=== PATIENT | female | born 1945 | race Caucasian/White ===

== ENCOUNTER 2018-01-18 12:44 | Inpatient (IN) | payer OTHER ==
[~2018-01-18] VITALS: Ht 170.2 cm; Wt 101.2 kg
--- NOTE | 2018-01-18 12:44 | NUR ---
Patient JULIA YUSUF from [facility], [place], transferred to bed 4. RN evaluating patient at bedside.
[2018-01-18 12:48] VITALS: BP 151/64
--- NOTE | 2018-01-18 12:50 | NUR ---
72 YO FEMALE BIB EMS BLS FROM [facility] FOR GRADUAL ONSET OF ALTERED MENTAL STATUS. PT IS AOX3 TO PERSON, PLACE, AND SITUATION, BUT NOT TIME. GCS=14. NO FACIAL/SMILE ASYMMETRY NOTED. PER EMS BLS REPORT, PATIENT WAS ALSO C/O LEFT FOOT SWELLING X UNKNOWN AMOUNT TIME. 3+ EDEMA TO LEFT FOOT AND ANKLE. PATIENT DENIES ANY INJURY. PT REPORTS 3/10 PAIN TO LEFT FOOT/ANKLE. PT DENIES ANY CP OR SOB. RR ARE EVEN AND UNLABORED. PATIENT TO PULSE, PULSE OX, AND BP MONITORING. NAD. VSS. AWAITING ER MD REDDY. WILL CONTINUE TO MONITOR.
[2018-01-18] MEDS ORDERED: HAL1 PO (12:57)
[2018-01-18] MEDS ORDERED: TRAZ-343 PO (12:57)
[2018-01-18] MEDS ORDERED: LOSA50TA39 PO (12:57)
[2018-01-18] MEDS ORDERED: PAX10 PO (12:57)
[2018-01-18] MEDS ORDERED: CLON0.5T PO (12:57)
--- NOTE | 2018-01-18 13:54 | NUR ---
Dr. Urrutia evaluating patient at bedside.
--- NOTE | 2018-01-18 14:40 | NUR ---
lab by bedside
[2018-01-18 15:16] LABS: BASOPHILS % (AUTO) 0.4 % (0.0-2.0); EOSINOPHILS # (AUTO) 0.2 K/uL (0-0.4); EOSINOPHILS % (AUTO) 4.1 % (0.0-4.0); HEMOGLOBIN 12.6 g/dL (12.0-16.0); LYMPHOCYTES # (AUTO) 1.2 K/uL (2.5-16.5); LYMPHOCYTES % (AUTO) 19.8 % (20.5-51.1); MEAN CORPUSCULAR HEMOGLOBIN 28 pg (27-31); MEAN CORPUSCULAR HGB CONC 33 g/dL (33-37); MEAN CORPUSCULAR VOLUME 84.5 fL (80-94); MONOCYTES # (AUTO) 0.4 K/uL (0.8-1.0); MONOCYTES % (AUTO) 6.8 % (1.7-9.3); NEUTROPHILS # (AUTO) 4.1 K/uL (1.8-7.7); NEUTROPHILS % (AUTO) 68.9 % (42.2-75.2); PLATELET COUNT (AUTO) 202 K/uL (140-450); RED CELL DISTRIBUTION WIDTH 13.7 % (11.6-13.7)
[2018-01-18 15:24] LABS: ANION GAP 13.9 (8-16); CHLORIDE 107 mmol/L (98-107); CREATININE 0.8 mg/dL (0.6-1.3); GLUCOSE 106 mg/dL (74-106); POTASSIUM 3.9 mmol/L (3.5-5.1); SODIUM SERUM 144 mmol/L (136-145); UREA NITROGEN, BLOOD 17 mg/dL (7-18)
[2018-01-18 15:29] LABS: ALBUMIN 3.4 g/dL (3.4-5.0); ASPARTATE AMINOTRANSFERASE 15 U/L (15-37); TOTAL BILIRUBIN 0.5 mg/dL (0.0-1.0)
[2018-01-18 15:54] LABS: APPEARANCE,URINE CLEAR (CLEAR); BILIRUBIN,URINE NEGATIVE (NEGATIVE); BLOOD, URINE TRACE-I (NEGATIVE); LEUKOCYTE ESTERASE ,URINE NEGATIVE (NEGATIVE); NITRITE, URINE NEGATIVE (NEGATIVE); UGLUCOSE NEGATIVE (NEGATIVE)
--- NOTE | 2018-01-18 16:00 | NUR ---
Patient became agressive, altered, and threatening staff...patient sts "I will hit you if you go near me again". Patient refused to remain in room or in gurney. Patient stated to walk around er and stating "Help, Help, these people are going to hell". ER MD FITCH made aware and zinc furnace charger John. Security called.
[2018-01-18 16:14] LABS: COLOR,URINE STRAW (YELLOW)
[2018-01-18 16:15] LABS: RBC,URINE 0-5 (RARE) /HPF (0-5); WBC,URINE NONE SEEN /HPF (0-5)
[2018-01-18] MEDS ORDERED: HALOPERIDOL IM 5 MG/ML VIAL IM ONE (16:15)
[2018-01-18] MEDS ORDERED: LORazepam 2 MG/ML VIAL IM/IVP ONE (16:15)
[2018-01-18] MEDS ORDERED: diphenhydrAMINE 50 MG/ML VIAL IM ONE (16:15)
--- NOTE | 2018-01-18 16:56 | NUR ---
patient resting in rney with eye closed. nad. vss. will continue to monitor.
--- NOTE | 2018-01-18 17:41 | NUR ---
unable to start iv saline lock; patient did not tolerated. er md Hart made aware.
--- NOTE | 2018-01-18 18:16 | NUR ---
patient to ct via gurney accompanied by human service technician
[2018-01-18] MEDS ORDERED: HYDROcodone/APAP 5/325 MG 1 TAB TAB PO PRN (18:30)
[2018-01-18] MEDS ORDERED: LORazepam 2 MG/ML VIAL IVP PRN (18:30)
[2018-01-18] MEDS ORDERED: MORPHINE SULFATE 2 MG/ML SYR IVP PRN (18:30)
[2018-01-18] MEDS ORDERED: ACETAMINOPHEN 325 MG TAB PO PRN (18:30)
[2018-01-18] MEDS ORDERED: ONDANSETRON 4 MG/2 ML VIAL IVP PRN (18:30)
--- NOTE | 2018-01-18 18:33 | NUR ---
Janet daughter of patient
--- NOTE | 2018-01-18 19:00 | NUR ---
PT ARRIVED TO UNIT VIA RCRUM FROM ER. RECEIVED REPORT FROM ER NURSE. PT SEDATED. ASSISTED WITH PT TRANSFER TO [facility]. PT TOLERATED WELL. VITAL SIGNS TAKEN- ELEVATED BP NOTED. NO S/S OF RESPIRATORY DISTRESS OR DISCOMFORT NOTED. SKIN INTACT. NO IV SITE. ON ROOM AIR. MRSA SWAB COLLECTED. BED IN LOWEST POSITION, BED BREAKS ON, BOTH SIDE RAILS UP. BEDSIDE TABLE AND CALL LIGHT ARE WITHIN REACH. WILL CONTINUE TO MONITOR.
--- NOTE | 2018-01-18 19:00 | NUR ---
Patient will be admitted to [facility]. Admited to Med Surg. Will go to room 107-A. Belongings list completed. Report to Mercedes SMITH.
[2018-01-18 20:00] VITALS: BP 151/82
--- NOTE | 2018-01-18 21:00 | NUR ---
PT CONTINUES TO SLEEP IN BED. NO S/S OF RESPIRATORY DISTRESS OR DISCOMFORT NOTED AT THIS TIME. WILL CONTINUE TO MONITOR.
--- NOTE | 2018-01-18 23:00 | NUR ---
PT CONTINUES TO SLEEP. NO S/S OF RESPIRATORY DISTRESS OR DISCOMFORT NOTED AT THIS TIME. WILL CONTINUE TO MONITOR.
[2018-01-19] VITALS: BP 150/67
--- NOTE | 2018-01-19 | NUR ---
VITAL SIGNS TAKEN AND TOLERATED WELL. ELEVATED PT NOTED. NO S/S OF RESPIRATORY DISTRESS OR DISCOMFORT NOTED AT THIS TIME. WILL CONTINUE TO MONITOR.
--- NOTE | 2018-01-19 02:00 | NUR ---
PT CONTINUES TO SLEEP IN BED. NO S/S OF RESPIRATORY DISTRESS OR DISCOMFORT NOTED AT THIS TIME. WILL CONTINUE TO MONITOR.
--- NOTE | 2018-01-19 04:00 | NUR ---
PT CONTINUES TO SLEEP IN BED. NO S/S OF RESPIRATORY DISTRESS OR DISCOMFORT NOTED AT THIS TIME. WILL CONTINUE TO MONITOR.
--- NOTE | 2018-01-19 04:50 | NUR ---
PT AWAKE SITTING AT THE EDGE OF THE BED SPEAKING INCOHERENTLY AND THREATENING STATING, "YOU BETTER GET OUT OF MY ROOM." NO S/S OF RESPIRATORY DISTRESS OR DISCOMFORT NOTED AT THIS TIME. WILL CONTINUE TO MONITOR.
--- NOTE | 2018-01-19 06:00 | NUR ---
PT CONTINUES TO SIT IN BED TAKING OFF YELLOW SOCKS AND GOWN. COVERED SELF WITH BLANKET AND CONTINUES TO THREATEN PEOPLE WHEN THEY ENTER THE ROOM TELLING THEM TO "GET OUT." NO S/S OF RESPIRATORY DISTRESS OR DISCOMFORT NOTED AT THIS TIME. WILL CONTINUE TO MONITOR.
--- NOTE | 2018-01-19 07:00 | NUR ---
PT RESTING IN BED SLEEPING. NO S/S OF RESPIRATORY DISTRESS OR DISCOMFORT NOTED AT THIS TIME. WILL CONTINUE TO MONITOR.
--- NOTE | 2018-01-19 07:10 | NUR ---
ENDORSED PT CARE TO DAY SHIFT NURSE ANITA FOR CONTINUITY OF CARE.
--- NOTE | 2018-01-19 07:15 | NUR ---
RECEIVED REPORT FROM CELL BIOLOGIST NURSE, PT IS SLEEPING IN BED, PT HAS NO IV ACCESS, NO S/S OF RESPIRATORY DISTRESS OR DISCOMFORT NOTED, PT IS ON ROOM AIR, SAFETY/FALL PRECAUTIONS ARE IN PLACE, CALL LIGHT IS WITHIN REACH, WILL CONTINUE TO MONITOR.
[2018-01-19 08:00] VITALS: BP 160/90
--- NOTE | 2018-01-19 08:40 | NUR ---
PATIENT HAS BEEN SCREENED AND CATEGORIZED MODERATE NUTRITION RISK. PATIENT WILL BE SEEN WITHIN 3-5 DAYS OF ADMISSION. 01/21/18 01/23/[address]
[2018-01-19] MEDS ORDERED: ENOXAPARIN 40 MG/0.4 ML SYR SUBQ SCH (09:00)
--- NOTE | 2018-01-19 09:15 | NUR ---
Pt awake oriented x1, cooperative. Pt able to follow simple commands, denies pain, no s/s of acute distress noted at this time. pt sitting up in bed eating breakfast. Safety measures in place, will continue to monitor.
[2018-01-19] MEDS ORDERED: clonazePAM 0.5 MG TAB PO PRN (10:20)
[2018-01-19] MEDS ORDERED: LOSARTAN 50 MG TAB PO SCH ×2 (10:35→11:00)
[2018-01-19] MEDS ORDERED: PARoxetine 10 MG TAB PO SCH (11:00)
--- NOTE | 2018-01-19 12:00 | NUR ---
Pt awake oriented x1, cooperative. assisted to reposition for lunch and with meal set up. No s/s of acute distress noted at this time. Safety measures in place, call light and personal items within reach. Will continue to monitor.
--- NOTE | 2018-01-19 12:50 | NUR ---
I CALLED [facility] AND SPOKE TO GHULAM. I LET HER KNOW I WAS CALLING FROM [facility] TO LET HER KNOW THAT I HAD A DISCHARGE ORDER FOR THE PATIENT. I LET HER KNOW THE PATIENT WAS AWAKE, CALM BUT SHE WAS CONFUSED, I ASKED HER IF THAT WAS HER BASELINE AND I WAS TOLD IT WAS. GHULAM SAID THE PATIENT STAYS ON THE [facility] SIDE UNIT. [facility] DID MENTION THEY WERE CONCERNED ABOUT THE DISCOLORATION ON THE PATIENT'S RIGHT LOWER EXTREMITY AND BILATERAL LEG SWELLING. I LET HER KNOW THE PATIENT NO LONGER HAD ANY SWELLING BUT I WOULD GO AHEAD AND TALK THE DOCTOR. Addendum: 01/19/18 at 1434 by Radha Stovall RN SPOKE TO DAVID MOSELEYILY.
--- NOTE | 2018-01-19 13:00 | NUR ---
Pt resting comfortable in bed. No s/s of acute distress noted at this time. Safety measures in place, call light and personal items within reach,will continue to monitor.
--- NOTE | 2018-01-19 13:00 | NUR ---
PER CHARGE NURSE SHE PAGED DR. MAYES TO LET HIM KNOW ABOUT THE PATIENT'S DISCOLORATION ON THE LEFT LOWER EXTREMITY AND HE ORDERED BILATERAL LOWER EXTREMITY ULTRASOUND. PER DR. MAYES IF THE RESULTS ARE NEGATIVE PATIENT IS CLEARED TO BE DISCHARGED. PATIENT HAS NO OPEN WOUND AND IT IS NOT AN ACUTE PROBLEM.
--- NOTE | 2018-01-19 14:10 | NUR ---
ADMISSION CHART REVIEW DONE. FAXED INITIAL REVIEW TO [facility] [phone] PHONE DUSTIN [phone]
--- NOTE | 2018-01-19 14:30 | NUR ---
CALLED [facility] AND SPOKE WITH [facility]. THIS PATIENT IS IN THEIR MEMORY UNIT AND THEY WILL TAKE HER BACK UPON DISCHARGE. NO DME. ADMISSION CHART REVIEW DONE FAXED INITIAL REVIEW TO [facility] [phone] PHONE DUSTIN [phone].
--- NOTE | 2018-01-19 15:41 | NUR ---
I CALLED [facility] AND I SPOKE TO CABRERA. I LET HER KNOW DR. MAYSE HAD ORDERED AND ULTRASOUND OF BILATERAL LOWER EXTREMITIES AND IT WAS NEGATIVE, NO DVT. PT IS CLEARED BY DR. MAYES TO GO BACK TO [facility]. CABRERA VERBALIZED UNDERSTANDING.
--- NOTE | 2018-01-19 15:49 | NUR ---
CALLED THE PATIENT'S DAUGHTER JAC CORTEZ AT [phone]. REACHED HER VOICEMAIL AND MESSAGE WAS LEFT BY CHARGE NURSE.
[2018-01-19 16:00] VITALS: BP 133/54
--- NOTE | 2018-01-19 16:00 | NUR ---
pt sleeping at this time. no s/s of acute distress noted. safety measures in place, call light and personal items within reach. Will continue to monitor.
--- NOTE | 2018-01-19 19:17 | NUR ---
Pt resting comfortably in bed, no s/s of acute distress noted,. Report endorsed to night nurse Kamini. Safety measures in place, call light and personal items with in reach.
--- NOTE | 2018-01-19 19:18 | NUR ---
RECD. RESTING COMFORTABLY SLEEPING, BUT WAKES UP EASILY WHEN TOUCHED AND NAME CALLED. A/OX1, RESPIRATION EVEN AND UNLABORED. NO IV LINE. NOTED WITH BLE PITTING EDEMA 2+. SAFETY MEASURES ENFORCED. BED ON ALARM. REORIENTED TO HOSPITAL SETTING. ADDITIONAL DISCHARGE INSTRUCTIONS GIVEN. NEEDS REINFORCEMENT. DENIES PAIN 0/10.
--- NOTE | 2018-01-19 19:18 | NUR ---
RECD. RESTING IN BED, AWAKE, A/OX4. RESPIRATION EVEN AND UNLABORED. NO IV LINE, REFUSED IV INSERTION. LUNGS CLEAR ON BILATERAL AUSCULTATION . NO AGITATION NOTED. PLEASANT AND FRIENDLY. PLAN OF CARE FOR THE SHIFT DISCUSSED. VERBALIZED UNDERSTANDING. REQUESTING FOR HER NIGHT MEDICATIONS TO BE GIVEN EARLY. 02 SAT - 97% ON ROOM AIR. DENIES PAIN . Addendum: 01/19/18 at 2136 by Sharron Burgess LVN ERROR: THIS CHARTING IS NOT FOR THIS PATIENT.
[2018-01-19 19:45] VITALS: BP 151/74
--- NOTE | 2018-01-19 19:45 | NUR ---
WARM FOOD FOR DINNER AND ASSISTED TO EAT. ABLE TO EAT 80%.
--- NOTE | 2018-01-19 20:00 | NUR ---
ASSISTED TO PUT ON DRESS, READY FOR DISCHARGE, JUST WAITING FOR AMBULANCE.
--- NOTE | 2018-01-19 20:40 | NUR ---
TAKEN TO HOSPITAL LOBBY PARKING VIA W/C IN STABLE CONDITION FOR DISCHARGE TO [facility] ACCOMPANIED BY AMBULANCE PERSONNEL.
[2018-01-19] MEDS ORDERED: traZODone 50 MG TAB PO SCH (21:00)
--- NOTE | 2018-01-19 21:20 | NUR ---
[facility] PERSONNEL CAME TO TAKE PATIENT. PATIENT REFUSED DIAPER, JUST WANTS UNDERWEAR. ASSISTED TO TRANSFER FROM BED TO W/C. Addendum: 01/19/18 at 2159 by Sharron Burgess LVN CORRECTION: TIME OF THIS NOTES IS 2019, NOT 2119.
[2018-01-20] MEDS ORDERED: LOSARTAN 50 MG TAB PO SCH (09:00)
[2018-01-20] MEDS ORDERED: PARoxetine 10 MG TAB PO SCH (09:00)
== END 2018-01-19 20:40 | DRG 948 ==
LOC: MED 12:44 → EDBD 12:44 → MMU 18:28 → MTU 18:52
PROVIDERS: ADMIT Hospitalist; ATTEND Hospitalist
DX: R41.0 Disorientation, unspecified (principal); R45.1 Restlessness and agitation; I10 Essential (primary) hypertension; F03.90 Unspecified dementia, unspecified severity, without behavioral disturbance, psychotic disturbance, mood disturbance, and anxiety; F41.9 Anxiety disorder, unspecified; F32.9 Major depressive disorder, single episode, unspecified
CPT/HCPCS: 36415; 70450; 71045; 80053; 81001; 84484; 85025; 87081; 93005; 93970; 96372; 99285; J1200; J1630; J2060; Q0092

== ENCOUNTER 2018-07-12 04:00 | Inpatient (IN) | payer OTHER ==
[~2018-07-12] VITALS: Ht 170.2 cm; Wt 95.3 kg
[2018-07-12] VITALS (62 sets, daily range): BP systolic 86–149; BP diastolic 38–123
[~2018-07-12 04:00] MED LIST: CLON0.5T PO; HAL1 PO; LOSA50TA66 PO; PAX10 PO; TRAZ-343 PO
--- NOTE | 2018-07-12 04:00 | NUR ---
PT JULIA ALS. TAKEN TO BED 10
--- NOTE | 2018-07-12 04:11 | NUR ---
Dr. Mahan evaluating patient at bedside.
--- NOTE | 2018-07-12 04:15 | NUR ---
FLU SWAB DONE , PT TOLERATED WELL. SENT TO LAB
[2018-07-12] MEDS ORDERED: NACL 0.9% 1,000 ML IV ONE (04:17)
[2018-07-12] MEDS ORDERED: PIPERACILLIN/TAZOBACTAM 3.375 GM in DEXTROSE 5% 50 ML IV ONE (04:20)
[2018-07-12] MEDS ORDERED: NACL 0.9% 2,000 ML IV ONE ×2 (04:20→05:45)
--- NOTE | 2018-07-12 04:20 | NUR ---
Straight cath done. Urine collected. Pt tolerated well. Urine sent to lab
[2018-07-12] MEDS ORDERED: ACETAMINOPHEN 325 MG TAB PO ONE ×2 (04:25)
--- NOTE | 2018-07-12 04:30 | NUR ---
PATIENT PRESENTS TO ED WITH GENERALIZED WEAKNESS ADN HYPOTENSIVE. PMH HTN, DEMENTIA, DEPRESSION, ADN ANXIETY. AAO X1 TO PERSON ONLY. GCS 13. SKIN IS PINK/WARM/DRY; LUNGS CLEAR BL; HR EVEN AND REGULAR; RADIAL PULSES PRESENT AT REGUALR. PT HAS NON-PRODUCTIVE COUGH.; PATIENT UNABLE TO STATE PAIN AT THIS TIME, PER FLACC SCALE PAIN IS 3; VSS; PATIENT POSITIONED FOR COMFORT; HOB ELEVATED; BEDRAILS UP X2; BED DOWN. ER MD MADE AWARE OF PT STATUS. WILL CONTINUE TO MONITOR.
--- NOTE | 2018-07-12 04:36 | NUR ---
X-Ray at bedside.
[2018-07-12] MEDS ORDERED: PIPERACILLIN/TAZOBACTAM 3.375 GM VIAL IV ONE ×2 (04:56)
[2018-07-12 05:02] LABS: BASOPHILS % (AUTO) 0.1 % (0.0-2.0); HEMATOCRIT 32.5 % (36-48); HEMOGLOBIN 10.4 g/dL (12.0-16.0); LYMPHOCYTES # (AUTO) 0.5 K/uL (2.5-16.5); MEAN CORPUSCULAR HEMOGLOBIN 27 pg (27-31); MEAN CORPUSCULAR HGB CONC 32 g/dL (33-37); MEAN CORPUSCULAR VOLUME 85.9 fL (80-94); MONOCYTES % (AUTO) 7.3 % (1.7-9.3); NEUTROPHILS # (AUTO) 11.8 K/uL (1.8-7.7); NEUTROPHILS % (AUTO) 89.2 % (42.2-75.2); PLATELET COUNT (AUTO) 211 K/uL (140-450); RED BLOOD CELL COUNT(AUTO) 3.79 MIL/uL (4.20-5.40); RED CELL DISTRIBUTION WIDTH 14.2 % (11.6-13.7); WHITE BLOOD COUNT (AUTO) 13.2 K/uL (4.8-10.8)
[2018-07-12 05:12] LABS: APPEARANCE,URINE CLOUDY (CLEAR); BILIRUBIN,URINE NEGATIVE (NEGATIVE); BLOOD, URINE 2+ (NEGATIVE); COLOR,URINE YELLOW (YELLOW); LEUKOCYTE ESTERASE ,URINE 2+ (NEGATIVE); NITRITE, URINE POSITIVE (NEGATIVE); UGLUCOSE NEGATIVE (NEGATIVE)
[2018-07-12 05:13] LABS: ALBUMIN 2.7 g/dL (3.4-5.0); ANION GAP 11.4 (8-16); ASPARTATE AMINOTRANSFERASE 12 U/L (15-37); CARBON DIOXIDE 26.5 mmol/L (21-32); CHLORIDE 107 mmol/L (98-107); CREATININE 1.6 mg/dL (0.6-1.3); GLUCOSE 122 mg/dL (74-106); LIPASE 45 U/L (73-393); POTASSIUM 3.9 mmol/L (3.5-5.1); SODIUM SERUM 141 mmol/L (136-145); TOTAL BILIRUBIN 0.6 mg/dL (0.0-1.0); UREA NITROGEN, BLOOD 22 mg/dL (7-18)
[2018-07-12 05:15] LABS: PROTHROMBIN TIME 10.9 secs (10.8-13.4)
[2018-07-12 05:32] LABS: LYMPHOCYTES % (AUTO) 3.4 % (20.5-51.1)
--- NOTE | 2018-07-12 05:40 | NUR ---
Pt asleep. Arousable to name and pain stimulus. Vitals monitored. Pt hypotensive.
[2018-07-12 05:48] LABS: WBC,URINE 80-100 /HPF (0-5)
--- NOTE | 2018-07-12 06:00 | NUR ---
MD at bedside. Assessing condition. Manual BP taken, refer to vitals.
[2018-07-12] MEDS ORDERED: ASPIRIN 325 MG TAB PO ONE (06:25)
--- NOTE | 2018-07-12 06:40 | NUR ---
F/c inserted. Pt tolerated well. draining to gravity.
[2018-07-12] MEDS ORDERED: NOREPINEPHRINE 8 MG in DEXTROSE 5% 250 ML IV PRN ×2 (06:50→17:55)
[2018-07-12] MEDS ORDERED: NOREPINEPHRINE 4 MG/4 ML VIAL IV ONE ×2 (07:05→07:06)
--- NOTE | 2018-07-12 07:15 | NUR ---
Levophed started at 5meQ per hospital protocol.
--- NOTE | 2018-07-12 07:17 | NUR ---
Gave report to LUIS Brice. Pt VSS.
--- NOTE | 2018-07-12 07:18 | NUR ---
OBTAINED REPORT FROM MACHINE STAKER, PT IS AAOX1, DROWSY, ABLE TO FOLLOW COMMANDS, BP 86/39, ON LEVOPHED DRIP, FLACC 0. NO S/S OF DISTRESS, CLEAR LUNG SOUNDS ABNER. ON O2 AT 2L VIA NC, O2 SAT 96%, SR ON MONITOR, SOFT ABDOMEN WITH ACTIVE BOWEL SOUNDS, F/C IN PLACE WITH CLOUDY YELLOW URINE VIA GRAVITY, GENERALIZED WEAKNESS, SKIN IS INTACT, WARM AND DRY TO TOUCH, TEMP 98.3F, IV SITE TO RAC 20GA, AND LEFT HAND 20GA. HOB ELEVATED, SAFETY MEASURES IN PLACE, WILL CONTINUE TO MONITOR.
[2018-07-12] MEDS ORDERED: ONDANSETRON 4 MG/2 ML VIAL IVP PRN (07:40)
[2018-07-12] MEDS ORDERED: HYDROcodone/APAP 5/325 MG 1 TAB TAB PO PRN (07:40)
--- NOTE | 2018-07-12 08:20 | NUR ---
Patient will be admitted to care of DR. DSOUZA. Admited to ICU. Will go to room ICU 2. Belongings list completed. Report to LUIS SABILLON AT BEDSIDE.
--- NOTE | 2018-07-12 08:25 | NUR ---
RECEIVED PATIENT FROM COMPUTER SYSTEMS SECURITY ANALYSTMARTÍN FOR CONTINUITY OF CARE. PATIENT IS AAOX1, UNABLE TO MAKE NEEDS KNOWN OR FOLLOW COMMANDS, LETHARGIC. SKIN IS WARM AND DRY, INTACT. PATIENT IS ON NASAL CANNULA AT 2 LPM, BREATHING EVEN AND UNLABORED. SR ON MONITOR, BP IS 119/54, PATIENT IS ON LEVOPHED AT 7MCG/KG/MIN AND NS AT 150 ML/HR. SHE HAS PERIPHERAL IV SITE TO RAC 22 GAUGE AND LEFT HAND 20 GAUGE, ASYMPTOMATIC AND PATENT. MORA CATHETER IN PLACE TO CLOUDY LIGHT YELLOW URINE. SAFETY PRECAUTIONS ASSESS AND ENFORCED. NO SIGNS OF DISTRESS AT THIS TIME. WILL CONTINUE TO MONITOR
--- NOTE | 2018-07-12 08:26 | NUR ---
DR. RAO HERE TO SEE AND EXAMINE PATIENT, UPDATED ON PATIENT'S CONDITION. WILL FOLLOW UP ON ANY ORDERS.
--- NOTE | 2018-07-12 08:45 | NUR ---
FALL RISK ARMBAND AND SOCKS APPLIED, MRSA NARES COLLECTED AND SENT TO LAB.
[2018-07-12] MEDS: NACL 0.9% 1,000 ML IV SCH ×3 (08:55→22:11)
[2018-07-12] MEDS: clonazePAM 0.5 MG TAB PO SCH ×2 (09:00→13:13)
[2018-07-12] MEDS: PARoxetine 10 MG TAB PO SCH ×2 (09:00→13:39)
[2018-07-12] MEDS: HALOPERIDOL 1 MG TAB PO SCH ×2 (09:00→13:39)
[2018-07-12] MEDS: ENOXAPARIN 30 MG/0.3 ML SYR SUBQ SCH (10:10)
--- NOTE | 2018-07-12 10:33 | NUR ---
DR. MAYES IN TO SEE AND EXAMINE PATIENT,UPDATED ON PATIENT'S CONDITION. WILL FOLLOW UP ON ANY ORDERS
--- NOTE | 2018-07-12 12:57 | NUR ---
SPOKE WITH DAUGHTER JAC CORTEZ REGARDING PATIENT VACCINATION HX, STATES THAT PATIENT HAD PNA VACCINE 3 YEARS AGO, AND REFUSED TO GET FLU VACCINE BECAUSE THEY BELIEVE PATIENT IS NOT AT RISK. Addendum: 07/12/18 at 1753 by Marianne Ojeda RN PATIENT DAUGHTER JAC ALSO REFUSES THE INSERTION OF CENTRAL LINE FOR PATIENT DUE TO THE RISKS.
[2018-07-12] MEDS: ACETAMINOPHEN 325 MG TAB PO PRN (13:21)
--- NOTE | 2018-07-12 13:26 | NUR ---
PATIENT COMPLAINS BEING COLD, TEMPERATURE IS 100.4, ADMINISTERED TYLENOL WELL PO MEDICATIONS THAT WAS HELD THIS MORNING DUE TO PATIENT BEING HYPOTENSIVE. BP IS 137/105, LEVOPHED DRIP IS ON HOLD.
--- NOTE | 2018-07-12 15:04 | NUR ---
PATIENT IS HYPOTENSIVE, BP IS 81/40, RESTARTED LEVOPHED DRIP
--- NOTE | 2018-07-12 15:17 | NUR ---
PATIENT IS ON LEVOPHED DRIP AT 7MCG/KG/MIN, BP IS 100/44
--- NOTE | 2018-07-12 15:41 | NUR ---
PATIENT HAS TEMP OF 100.6, COOLING MEASURES APPLIED. WILL CONTINUE TO MONITOR PATIENT.
--- NOTE | 2018-07-12 16:08 | NUR ---
PATIENT IS HYPOTENSIVE, BP IS 80/44 AT 1605 , INCREASE LEVOPHED TO 11MCG/KG/MIN, 20.55 MLS/HR. BP NOW IS 105/42
--- NOTE | 2018-07-12 17:50 | NUR ---
SPOKE WITH DR. CABRAL, WHO IS PROFESSIONAL ATHLETES COACH FOR DR. RAO, REGARDING PHARMACY NEEDING A NEW ORDER FOR LEVOPHED BECAUSE THE PRESENT ORDER IS BY THE ER DR. HODGSON
[2018-07-12] MEDS: NOREPINEPHRINE 4 MG in DEXTROSE 5% 250 ML IV PRN (18:42)
--- NOTE | 2018-07-12 19:04 | NUR ---
RECEIVED REPORT FROM AM SHIFT. PT AOX1 EPISODES OF CONFUSION NOTED. UNABLE TO VERBALIZE NEEDS. LUNG SOUNDS CLEAR. ON NASAL CANNULA 4LPM. SR ON MONITOR. LEVOPHED DRIP 4MG IN PLACE. 11MCG AT THIS TIME. REGULAR DIET. ABD SOFT NONTENDER. BOWEL SOUNDS ACTIVE X [address] QU[address]RANTS. F/C IN PLACE. BLADDER NONDISTENDED. IV SITE L HAND 20G PATENT INTACT. R AC 22 G PATENT INTACT. ON COOLING MEASURES. BED IN LOWEST POSITION. SR UP X4. CALL LIGHT WITHIN REACH. WILL CONTINUE TO MONITOR.
--- NOTE | 2018-07-12 19:14 | NUR ---
ENDORSED CONTINUITY OF CARE TO SAS BI DEVELOPER RNJACOB, AT BEDSIDE. NO SIGNS OF DISTRESS NOTED.
--- NOTE | 2018-07-12 19:50 | NUR ---
LAB RESULTS GRAM NEGATIVE RODS.
--- NOTE | 2018-07-12 19:50 | NUR ---
PAGED DR. CABRAL REGARDING BLLOD CULTURE GRAM NEGATIVE RODS. NEW ORDER ATIVAN 1MG PRN Q1H FOR AGITATION AND MORPHINE 2MG Q 4 HOUR FOR PAIN ADDED
--- NOTE | 2018-07-12 20:15 | NUR ---
NEW MEDICATION MORPHINE NOT ADDED D/T PT ALLERGIC TO CODEINE. SAME CLASSIFICATION MORPHINE
[2018-07-12] MEDS: traZODone 50 MG TAB PO SCH (20:32)
--- NOTE | 2018-07-12 23:45 | NUR ---
TITRATED DOWN TO 8MCG/KG/MIN. VSS WILL CONTINUE TO MONITOR.
[2018-07-13] VITALS (46 sets, daily range): BP systolic 93–147; BP diastolic 26–106
--- NOTE | 2018-07-13 01:20 | NUR ---
PT CONFUSED AT THIS TIME. PULLS ON IV SITE. REORIENTED THE PATIENT TO TIME AND LOCATION.
[2018-07-13] MEDS: NOREPINEPHRINE 4 MG in DEXTROSE 5% 250 ML IV PRN (02:16)
--- NOTE | 2018-07-13 04:03 | NUR ---
TITRATED TO 6MCG/KG/MIN 22.5 ML AT THIS TIME. NO SIGNS OF ACUTE DISTRESS NOTED.
--- NOTE | 2018-07-13 04:34 | NUR ---
LAB AT BEDSIDE AT THIS TIME
--- NOTE | 2018-07-13 05:12 | NUR ---
AM CARE PROVIDED AT THIS TIME
[2018-07-13] MEDS: NACL 0.9% 1,000 ML IV SCH ×2 (05:20→11:42)
[2018-07-13] MEDS: ACETAMINOPHEN 325 MG TAB PO PRN (05:31)
--- NOTE | 2018-07-13 05:35 | NUR ---
REPORTS MILD PAIN IN NECK. UNABLE TO QUANTIFY NUMBER. TYLENOL GIVEN AT THIS TIME
--- NOTE | 2018-07-13 06:22 | NUR ---
TITRATED LEVOPHED DOWN TO 2MCG
[2018-07-13 06:38] LABS: ALBUMIN 2.2 g/dL (3.4-5.0); ANION GAP 12.3 (8-16); ASPARTATE AMINOTRANSFERASE 13 U/L (15-37); CARBON DIOXIDE 25.1 mmol/L (21-32); CHLORIDE 112 mmol/L (98-107); CREATININE 1.1 mg/dL (0.6-1.3); GLUCOSE 117 mg/dL (74-106); MAGNESIUM 1.8 mg/dL (1.8-2.4); POTASSIUM 4.4 mmol/L (3.5-5.1); SODIUM SERUM 145 mmol/L (136-145); TOTAL BILIRUBIN 0.3 mg/dL (0.0-1.0); UREA NITROGEN, BLOOD 19 mg/dL (7-18)
[2018-07-13 06:42] LABS: BASOPHILS % (AUTO) 0.2 % (0.0-2.0); EOSINOPHILS % (AUTO) 0.3 % (0.0-4.0); HEMATOCRIT 33.7 % (36-48); HEMOGLOBIN 10.9 g/dL (12.0-16.0); LYMPHOCYTES # (AUTO) 1.1 K/uL (2.5-16.5); LYMPHOCYTES % (AUTO) 8.6 % (20.5-51.1); MEAN CORPUSCULAR HEMOGLOBIN 28 pg (27-31); MEAN CORPUSCULAR HGB CONC 33 g/dL (33-37); MEAN CORPUSCULAR VOLUME 86.2 fL (80-94); MONOCYTES # (AUTO) 0.8 K/uL (0.8-1.0); MONOCYTES % (AUTO) 6.4 % (1.7-9.3); NEUTROPHILS # (AUTO) 10.7 K/uL (1.8-7.7); NEUTROPHILS % (AUTO) 84.5 % (42.2-75.2); PLATELET COUNT (AUTO) 203 K/uL (140-450); RED BLOOD CELL COUNT(AUTO) 3.91 MIL/uL (4.20-5.40); RED CELL DISTRIBUTION WIDTH 14.2 % (11.6-13.7); WHITE BLOOD COUNT (AUTO) 12.7 K/uL (4.8-10.8)
--- NOTE | 2018-07-13 06:58 | NUR ---
ENDORSED CARE TO INCOMING SHIFT FOR CONTINUITY OF CARE. BED IN LOWEST POSITION. SR UP X4. NO SIGNS OF ACUTE DISTRESS AT THIS TIME
--- NOTE | 2018-07-13 07:08 | NUR ---
RECEIVED BEDSIDE REPORT FROM FUNERAL ASSISTANT RN, JACOB, FOR CONTINUITY OF CARE. PATIENT IS AAOX2, ABLE TO MAKE SOME NEEDS KNOWN AND FOLLOW SIMPLE COMMANDS. PATIENT SKIN IS INTACT, WARM AND DRY, SHE IS AFEBRILE AT THIS TIME. PATIENT HAS A PERIPHERAL IV SITE TO L HAND, 20 GAUGE, AND R AC 22 GAUGE, ASYMPTOMATIC AND PATENT. SHE IS ON LEVOPHED AT 2MCG/MIN AND NS IS RUNNING AT 150 ML/HR. PATIENT IS ON NASAL CANNULA 4 LPM, O2 SAT 98%, BREATHING EVEN AND UNLABORED. SB ON MONITOR, FLACC 0, DENIES PAIN. PATIENT HAS MORA CATHETER IN PLACE TO CLEAR YELLOW URINE. HOB IS SEMI FOWLERS POSITION, CALL LIGHT WITHIN REACH, SAFETY PRECAUTIONS AND ALARMS ASSESSED AND ENFORCED. NO SIGNS OF DISTRESS NOTED, WILL CONTINUE TO MONITOR.
--- NOTE | 2018-07-13 07:59 | NUR ---
PATIENT HAS BEEN SCREENED AND CATEGORIZED HIGH NUTRITION RISK. PATIENT WILL BE SEEN WITHIN 1-2 DAYS OF ADMISSION. 07/13/[address]
[2018-07-13] MEDS: PARoxetine 10 MG TAB PO SCH (08:19)
--- NOTE | 2018-07-13 08:24 | NUR ---
DR. RAO IN TO SEE AND EXAMINE PATIENT, UPDATED ON PATIENT'S CONDITION. WILL FOLLOW UP ON ANY ORDERS.
--- NOTE | 2018-07-13 08:25 | NUR ---
DECREASED O2 TO 2LPM, PATIENT O2 SAT IS AT 98%. WILL CONTINUE TO MONITOR
[2018-07-13] MEDS: PANTOPRAZOLE 40 MG INJ VIAL IVP SCH (08:40)
[2018-07-13] MEDS: ENOXAPARIN 30 MG/0.3 ML SYR SUBQ SCH (08:42)
[2018-07-13] MEDS: HALOPERIDOL 1 MG TAB PO SCH (09:00)
[2018-07-13] MEDS: clonazePAM 0.5 MG TAB PO SCH ×2 (09:00→20:37)
--- NOTE | 2018-07-13 09:16 | NUR ---
LEVOPHED HELD AT THIS TIME, PATIENT BP IS 99/50, SB ON MONITOR, PATIENT IS AWAKE WATCHING TV AT THIS TIME.
--- NOTE | 2018-07-13 09:18 | NUR ---
PATIENT IS ON ROOM AIR AT THIS TIME, O2 SAT IS 97%, WILL CONTINUE TO MONITOR
--- NOTE | 2018-07-13 10:06 | NUR ---
PATIENT HAS BEEN ON ROOM AIR AND OFF LEVOPHED SINCE 915. PATIENT'S VITALS ARE STABLE AT THIS TIME, WILL CONTINUE TO MONITOR
--- NOTE | 2018-07-13 10:40 | NUR ---
DR. MAYES IN TO SEE AND EXAMINE PATIENT, STATES FROM HIS STANDPOINT PATIENT IS ABLE TO BE DOWNGRADED TO TELE. WILL FOLLOW UP ON ANY ORDERS.
[2018-07-13] MEDS ORDERED: PROBIOTIC SCREEN 1 EA MISC MC PRN (12:10)
--- NOTE | 2018-07-13 12:43 | NUR ---
PATIENT'S DAUGHTER AT BEDSIDE, NO SIGNS OF DISTRESS AT THIS TIME
--- NOTE | 2018-07-13 15:30 | NUR ---
07/13/18 RD INITIAL ASSESSMENT COMPLETED PLEASE REFER TO NUTRITION ASSESSMENT UNDER CARE ACTIVITY FOR ESTIMATED NUTRITIONAL NEEDS. 1. CONTINUE REGULAR DIET TOLERATED 2. RECOMMEND ENSURE BID 3. RD TO FOLLOW-UP 5-7 DAYS, LOW RISK SHAVONNE YEUNG RD
--- NOTE | 2018-07-13 15:30 | NUR ---
TRANSFERRED PATIENT TO [facility] VIA BED, ACCOMPANIED BY MST RN, JANET. PATIENT WAS HOOKED TO SENIOR ACCOUNT DIRECTOR, VITALS STABLE. NO ACUTE DISTRESS NOTED. ENDORSED CONTINUITY OF CARE TO LUIS GONZALES.
--- NOTE | 2018-07-13 15:38 | NUR ---
PT ARRIVED TO 108a, AAOX2, TRANSFERED TO BED WITH 3 PERSON ASSIST, MORA DRAINING CLEAR URINE TO GRAVITY, IV SITE WNL, PT ON CARDAC MONITOR, PT ORIENTED TO ROOM AND FLOOR, ALL SAFETY MEASURES IN PLACE, WILL CONTINUE TO MONITOR.
--- NOTE | 2018-07-13 17:50 | NUR ---
PT SITTING UP EATING DINNER, PT DENIES ANY PAIN OR DISCOMFORT, PT REMAINS ON BRUSHING OPERATOR, DENIES ANY IMMEDIATE NEEDS AT THIS TIME.
--- NOTE | 2018-07-13 19:30 | NUR ---
REPORT GIVEN TO DOLLY OPERATOR NURSE, PT IN STABLE CONDITION.
--- NOTE | 2018-07-13 19:35 | NUR ---
RECEIVED BEDSIDE REPORT FROM DAY SHIFT NURSE FOR CONTINUITY OF CARE. PATIENT AWAKE, AOX2, RESPIRATION EVEN UNLABORED ON ROOM AIR. DENIES PAIN. SKIN IS WARM AND DRY. IV PATENT AND INTACT. MORA CATHETER DRAINING YELLOW URINE. PLAN OF CARE WAS DISCUSSED. ALL SAFETY MEASURES ARE IN PLACE. BED ALARM ON. BED IS AT LOW POSITION. CALL LIGHT WITHIN REACH. WILL CONTINUE TO MONITOR
--- NOTE | 2018-07-13 20:35 | NUR ---
INITIAL ASSESSMENT DONE. VITALS WERE TAKEN. ALL DUE MEDS WERE GIVEN AND TOLERATED WELL. NO ASE NOTED. CALL LIGHT WITHIN REACH. WILL CONTINUE TO MONITOR
[2018-07-13] MEDS: traZODone 50 MG TAB PO SCH (20:36)
--- NOTE | 2018-07-13 21:45 | NUR ---
PATIENT LYING IN BED WATCHING TV RESPIRATION EVEN UNLABORED ON ROOM AIR. NO DISTRESS NOTED. WILL CONTINUE TO MONITOR
--- NOTE | 2018-07-13 23:26 | NUR ---
CHECKED PATIENT. PATIENT SLEEPING NO DISTRESS NOTED. WILL CONTINUE TO MONITOR
[2018-07-14] VITALS: BP 126/55
--- NOTE | 2018-07-14 00:20 | NUR ---
VITALS WERE TAKEN. PATIENT CONDITION STABLE. CALL LIGHT WITHIN REACH. WILL CONTINUE TO MONITOR.
[2018-07-14] MEDS: NACL 0.9% 1,000 ML IV SCH ×3 (01:41→21:58)
--- NOTE | 2018-07-14 02:00 | NUR ---
CHECKED PATIENT. PATIENT SLEEPING RESPIRATION EVEN UNLABORED ON ROOM AIR. NO DISTRESS NOTED. CALL LIGHT WITHIN REACH. WILL CONTINUE TO MONITOR
[2018-07-14 04:00] VITALS: BP 125/62
--- NOTE | 2018-07-14 04:20 | NUR ---
CHECKED PATIENT. VITALS WERE TAKEN. PATIENT SLEEPING. NO DISTRESS NOTED. CALL LIGHT WITIN REACH. WILL CONTINUE TO MONITOR
--- NOTE | 2018-07-14 05:45 | NUR ---
PATIENT REFUSED BLOOD DRAW. EDUCATED THE RISK AND BENEFITS X3 STILL REFUSED.
--- NOTE | 2018-07-14 07:28 | NUR ---
ENDORSED PATIENT TO DAY SHIFT NURSE FOR CONTINUITY OF CARE. PATIENT STABLE AT THIS TIME.
[2018-07-14 08:00] VITALS: BP 134/63
[2018-07-14] MEDS: PANTOPRAZOLE 40 MG INJ VIAL IVP SCH (10:01)
[2018-07-14] MEDS: HALOPERIDOL 1 MG TAB PO SCH (10:02)
[2018-07-14] MEDS: LACTOBACILLUS RHAMNOSUS GG 1 EACH CAP PO SCH (10:03)
[2018-07-14] MEDS: ENOXAPARIN 30 MG/0.3 ML SYR SUBQ SCH (10:04)
[2018-07-14] MEDS: clonazePAM 0.5 MG TAB PO SCH ×2 (10:04→20:09)
[2018-07-14] MEDS: PARoxetine 10 MG TAB PO SCH (10:11)
--- NOTE | 2018-07-14 10:26 | NUR ---
PT CONFUSED, STATES "I NEED TO GO AND WALK AROUND, TOOK HER IV OUT" PT REORIENTED, PT RETURNED BACK TO BED, ALL SAFETY MEASURES IN PLACE, NEW IV STARTED, 22G LEFT FA, IVF RESUMED, PT BRIAN WELL, WILL MONITOR CLOSELY.
[2018-07-14 12:00] VITALS: BP 115/73
[2018-07-14] MEDS: LORazepam 2 MG/ML VIAL IM/IVP PRN (12:02)
--- NOTE | 2018-07-14 12:05 | NUR ---
PT CONTINUES TO TRY TO GET UP OUT OF BED, TRIES TO REMOVE MONITOR AND IV, PT APPEARS AGITATED, ATIVAN GIVEN AT THIS TIME.
--- NOTE | 2018-07-14 13:55 | NUR ---
PT NOW SITTING UP IN BED CALMLY PLAYING WITH A BLANKET, RESP EVEN UNLABORED, SKIN WARM DRY COLOR WNL, ALL SAFETY MEASURES IN PLACE, WILL CONTINUE TO MONITOR
[2018-07-14] MEDS ORDERED: CEPH250C16 PO (14:13)
--- NOTE | 2018-07-14 15:21 | NUR ---
PT'S DAUGHTER JAC CORTEZ CALLED AT [phone], PLAN FOR DISCHARGE NOTIFIED, [facility] BILINGUAL ADMINISTRATIVE ASSISTANT PER JAC.
--- NOTE | 2018-07-14 15:45 | NUR ---
DR MAYES NOTIFIED OF BLOOD CULTURE RESULT, DC CANCELED, ORDER RECIEVED FOR ZOSYN 3.375G IV Q8H X36JOSS, CONTACT PRECAUTION INITIATED.
[2018-07-14 15:56] LABS: BASOPHILS % (AUTO) 0.3 % (0.0-2.0); EOSINOPHILS # (AUTO) 0.1 K/uL (0-0.4); EOSINOPHILS % (AUTO) 1.5 % (0.0-4.0); HEMATOCRIT 33.9 % (36-48); HEMOGLOBIN 11.1 g/dL (12.0-16.0); LYMPHOCYTES % (AUTO) 17.1 % (20.5-51.1); MEAN CORPUSCULAR HEMOGLOBIN 28 pg (27-31); MEAN CORPUSCULAR HGB CONC 33 g/dL (33-37); MEAN CORPUSCULAR VOLUME 85.4 fL (80-94); MONOCYTES # (AUTO) 0.5 K/uL (0.8-1.0); MONOCYTES % (AUTO) 8.1 % (1.7-9.3); NEUTROPHILS # (AUTO) 4.1 K/uL (1.8-7.7); PLATELET COUNT (AUTO) 197 K/uL (140-450); RED BLOOD CELL COUNT(AUTO) 3.97 MIL/uL (4.20-5.40); RED CELL DISTRIBUTION WIDTH 14.1 % (11.6-13.7); WHITE BLOOD COUNT (AUTO) 5.7 K/uL (4.8-10.8)
[2018-07-14 16:00] VITALS: BP 126/63
[2018-07-14 16:11] LABS: CARBON DIOXIDE 24.1 mmol/L (21-32); CHLORIDE 109 mmol/L (98-107); GLUCOSE 101 mg/dL (74-106); POTASSIUM 4.1 mmol/L (3.5-5.1); SODIUM SERUM 142 mmol/L (136-145); UREA NITROGEN, BLOOD 12 mg/dL (7-18)
--- NOTE | 2018-07-14 16:35 | NUR ---
PT'S DAUGHTER JAC CORTEZ CALLED [phone], WITH UPDATE OF POC, DC CANCELED, PT NOT GOING BACK TO [facility], SHE WAS MADE AWARE THAT PT NEEDS IVABX FOR 10DAYS, AND INFORMED HER THAT SHE WILL BE NOTIFIED ONCE PT IS ACCEPTED AT A FACILITY.
--- NOTE | 2018-07-14 18:20 | NUR ---
PT SITTING UP TRYING TO GET OUT OF BED, PT THINKS SHE NEEDS TO GET DRESSED AND GO WALK AROUND, PT REORIENTED, REASSURED, PLACED BACK IN BED, BED ALARM ON, ALL SAFETY MEASRUES IN PLACE, WILL CONTINUE TO MONITR
--- NOTE | 2018-07-14 19:22 | NUR ---
REPORT GIVEN TO BLENDING OPERATOR NURSE, PT IN STABLE CONDITION.
--- NOTE | 2018-07-14 19:23 | NUR ---
RECEIVED PT IN STABLE CONDITION FROM AM NURSE. AWAKE,BUT CONFUSED. BEDREST. ON TELE MONITOR -SR. NO S/S OF ANY DISCOMFORT NOR PAIN NOTED. ON CONTACT ISOLATION . IVF INFUSING WELL ON THE LT FA#22. CLEAR AND PATENT. MORA CATHETER DRAINING TO YELLOW COLORED URINE. BED ON LOWEST POSITION, SIDE RAILS ARE UP .BED ALARM BULB TESTER LIGHT PLACED WITHIN EASY REACH. WILL CONTINUE TO MONITOR.
[2018-07-14 20:00] VITALS: BP 123/78
[2018-07-14] MEDS: traZODone 50 MG TAB PO SCH (20:08)
[2018-07-14] MEDS: PIPER/TAZO 3.375GM/D5W PREMIX 50 ML IV SCH (20:09)
--- NOTE | 2018-07-14 21:00 | NUR ---
PT STILL AWAKE. NO S/S OF ANY DISCOMFORT NOTED.
--- NOTE | 2018-07-14 23:00 | NUR ---
MADE ROUNDS. PT AWAKE, TALKING , REPOSITIONED FOR COMFORT. WITH WARM BLANKET. WILL CONTINUE TO MONITOR.
[2018-07-15 01:20] VITALS: BP 169/81
[2018-07-15] MEDS: LORazepam 2 MG/ML VIAL IM/IVP PRN (01:35)
--- NOTE | 2018-07-15 01:35 | NUR ---
PT AGITATED. TRYING TO PULL OUT IV. BP HIGH. ATIVAN IVP PRN GIVEN. REPOSITIONED FOR COMFORT. WILL CONTINUE TO MONITOR.
--- NOTE | 2018-07-15 02:30 | NUR ---
MADE ROUNDS, PT IS STARTING TO GET SOME SLEEP. NO DISTRESS NOTED. WILL CONTINUE TO MONITOR.
[2018-07-15] MEDS: PIPER/TAZO 3.375GM/D5W PREMIX 50 ML IV SCH ×3 (04:07→21:10)
[2018-07-15 04:16] VITALS: BP 151/80
[2018-07-15] MEDS: NACL 0.9% 1,000 ML IV SCH ×2 (04:21→17:41)
--- NOTE | 2018-07-15 05:50 | NUR ---
PT REMAINS CONFUSED. BUT NO DISTRESS NOTED.
--- NOTE | 2018-07-15 07:30 | NUR ---
ENDORSED PT IN STABLE CONDITION TO AM NURSE.
--- NOTE | 2018-07-15 07:35 | NUR ---
RECEIVED PT FROM [employer] NURSEKEVIN, PT IS AWAKE AND LYING ON THE BED, SIDE RAILS ARE UP AND CALL LIGHT WITHIN REACH, BED ALARM ACTIVATED, FALL PRECAUTION INITIATED, PT HAS AN IV LINE ON THE LEFT FA G. 22 WITH NS AT 75ML, INFUSING, PT IS ON CONTACT ISOLATION FOR ESBL AND E. COLI OF BLOOD CULTURE, PT DENIES ANY PAIN NNOW AND RESPIRATION IS EVEN, MORA CATHETER IN PLACE. WILL CONTINUE TO MONITOR PT.
[2018-07-15 08:00] VITALS: BP 144/63
[2018-07-15] MEDS: PANTOPRAZOLE 40 MG INJ VIAL IVP SCH (09:08)
[2018-07-15] MEDS: clonazePAM 0.5 MG TAB PO SCH ×2 (09:09→21:11)
[2018-07-15] MEDS: LACTOBACILLUS RHAMNOSUS GG 1 EACH CAP PO SCH (09:10)
[2018-07-15] MEDS: ENOXAPARIN 30 MG/0.3 ML SYR SUBQ SCH (09:10)
[2018-07-15] MEDS: HALOPERIDOL 1 MG TAB PO SCH (09:11)
--- NOTE | 2018-07-15 09:17 | NUR ---
PT IS AWAKE AND SEATED ON THE BED, FED WITH THE BREAKFAST, VITAL SIGNS WERE CHECKED AND BP IS 154/73, PULSE IS 65, O2 SATURATION IS 95%, RESPIRATION IS 18/MIN, AND TEMPERATURE IS 97.4. PT'S ORIENTATION IS ALTERED, ORAL MEDICATIONS AND IV MEDICATION WERE GIVEN AND PT TOLERATED IT. NO SIGN OF DISTRESS NOTED, WILL CONTINUE TO MONITOR PT.
[2018-07-15] MEDS: PARoxetine 10 MG TAB PO SCH (09:58)
[2018-07-15 12:00] VITALS: BP 148/65
--- NOTE | 2018-07-15 13:07 | NUR ---
PT IS ASLEEP, RESPIRATIONS EVEN, ZOSYN WAS GIVEN VIA IVPB, WILL MONITOR PT.
--- NOTE | 2018-07-15 14:38 | NUR ---
Side Laster Tack Note: I faxed MD's snf order and face sheet to Nib Finisher Jennifer from [facility], phone number , fax .
[2018-07-15] MEDS ORDERED: AMOX-999 PO (15:07)
--- NOTE | 2018-07-15 15:53 | NUR ---
Senior Auditor Note: I called and spoke with Deputy Editor In Chief Jennifer from [facility] . Jennifer stated I can contact [facility], phone number , fax number for snf placement. I called and spoke with Lelia at [facility], she stated she already spoke with Deputy Editor In Chief Jennifer regarding this patient and they will be able to accept patient at their facility tomorrow, no beds today. I faxed inquiry to [facility]. I called Jennifer back and informed her of my conversation with Lelia. Per Jennifer, she does not want me to contact other snfs today and will authorize patient's hospitalization until tomorrow.
[2018-07-15 16:00] VITALS: BP 135/75
--- NOTE | 2018-07-15 16:40 | NUR ---
PT IS AWAKE LYING ON THE BED, TALKING TO HERSELF, V/S TAKEN AND IS WITHIN NORMAL LIMITS. NO SIGN OF DISTRESS NOTED. WILL MONITOR PT.
--- NOTE | 2018-07-15 19:20 | NUR ---
ENDORSED PT TO BINDING DYER NURSEHECTOR FOR CONTINUITY OF CARE. PT IS STABLE AT THIS TIME.
--- NOTE | 2018-07-15 19:40 | NUR ---
RECEIVED BEDSIDE REPORT FROM DAY SHIFT NURSE FOR CONTINUITY OF CARE. PATIENT ASLEEP BUT AWAKENS WHEN CALLED. PATIENT AOX2 TO NAME AND PLACE RESPIRATION EVEN UNLABORED ON ROOM AIR. DENIES PAIN. SKIN IS WARM AND DRY. IV PATENT AND INTACT. ALL SAFETY MEASURES ARE IN PLACE. PLAN OF CARE WAS DISCUSSED. BED IS AT LOW POSITION. BED ALARM ON. CALL LIGHT WITHIN REACH AND PATIENT VERBALIZES ITS USE. WILL CONTINUE TO MONITOR.
[2018-07-15 20:00] VITALS: BP 145/70
--- NOTE | 2018-07-15 20:10 | NUR ---
INITIAL ASSESSMENT DONE. VITALS WERE TAKEN. PATIENT CONDITION STABLE. CALL LIGHT WITHIN REACH. WILL CONTINUE TO MONITOR
--- NOTE | 2018-07-15 21:00 | NUR ---
ALL SCHEDULE DUE MEDS WERE GIVEN PER ORDER. NO ASE NOTED. CALL LIGHT WITHIN REACH. WILL CONTINUE TO MONITOR.
[2018-07-15] MEDS: traZODone 50 MG TAB PO SCH (21:11)
--- NOTE | 2018-07-15 22:50 | NUR ---
PATIENT SLEEPING INTERMITTENTLY BUT AWAKENS WHEN CALLED RESPIRATION EVEN UNLABORED ON ROOM AIR. NO DISTRESS NOTED. WILL CONTINUE TO MONITOR
[2018-07-16] VITALS: BP 126/53
--- NOTE | 2018-07-16 00:20 | NUR ---
VITALS WERE TAKEN. PATIENT CONDITION STABLE. NO DISTRESS NOTED. RESPIRATION EVEN UNLABORED ON ROOM AIR. WILL CONTINUE TO MONITOR
--- NOTE | 2018-07-16 03:20 | NUR ---
CHECKED PATIENT. PATIENT SLEEPING COMFORTABLY RESPIRATION EVEN UNLABORED ON ROOM AIR. NO DISTRESS NOTED. WILL CONTINUE TO MONITOR
[2018-07-16 04:00] VITALS: BP 138/65
--- NOTE | 2018-07-16 04:20 | NUR ---
CHECKED PATIENT. VITALS WERE TAKEN. PATIENT CONDITION STABLE. NO DISTRESS NOTED. WILL CONTINUE TO MONITOR.
[2018-07-16] MEDS: PIPER/TAZO 3.375GM/D5W PREMIX 50 ML IV SCH ×2 (04:50→14:23)
[2018-07-16] MEDS: NACL 0.9% 1,000 ML IV SCH (05:43)
--- NOTE | 2018-07-16 07:30 | NUR ---
ENDORSED PATIENT TO DAY SHIFT NURSE FOR CONTINUITY OF CARE. PATIENT STABLE AT THIS TIME.
--- NOTE | 2018-07-16 07:31 | NUR ---
RECEIVED REPORT FROM HECTOR RADIO MECHANIC HELPER NURSE Arnoldo FOR CONTINUITY OF CARE. PT IN STABLE CONDITION. RESPIRATIONS EVEN AND UNLABORED. ROOM AIR. IV INTACT PATENT. SAFETY MEASURES IN PLACE. BED IN LOW POSITION. CALL LIGHT AT BEDSIDE. WILL CONTINUE TO MONITOR.
[2018-07-16 08:00] VITALS: BP 100/49
[2018-07-16] MEDS: PANTOPRAZOLE 40 MG INJ VIAL IVP SCH (10:15)
[2018-07-16] MEDS: HALOPERIDOL 1 MG TAB PO SCH (10:15)
[2018-07-16] MEDS: LACTOBACILLUS RHAMNOSUS GG 1 EACH CAP PO SCH (10:16)
[2018-07-16] MEDS: clonazePAM 0.5 MG TAB PO SCH (10:18)
[2018-07-16] MEDS: ENOXAPARIN 30 MG/0.3 ML SYR SUBQ SCH (10:22)
[2018-07-16] MEDS ORDERED: ZOS3.375PM IV (10:35)
--- NOTE | 2018-07-16 10:37 | NUR ---
TRIED TO CALL DUSTIN AT [facility], . HER ANSWERING MACHINE SAID SHE WAS OUT OF THE OFFICE UNTIL THE . I CALLED AND LEFT A MESSAGE FOR LEIA, . I CALLED DUNCAN AT [phone]. SONG SAID SHE WOULD FOLLOW UP AND CALL ME BACK. I CALLED [facility] AND SPOKE WITH KALINA, . SHE SAID THEY COULD TAKE THE PATIENT TODAY UNDER TO [address]. AD[address]ESS [address] [place] [address]. SONG FROM [facility] CALLED AND SAID TO LET HER KNOW WHEN WE WANTED TO CORPORATE STATISTICAL FINANCIAL ANALYST THE PATIENT, AND SHE WOULD SET UP TRANSPORT. I SPOKE WITH DR. MAYES AND HE SAID HE WANTS THE PATIENT TO GO TO THE SNF. I INFORMED HIM OF WHICH SNF HAS ACCEPTED THE PATIENT. HE SAID HE WOULD SPEAK WITH THE DAUGHTER. I SPOKE WITH THE NURSE, OLIVA. SHE WANTED CORPORATE STATISTICAL FINANCIAL ANALYST ABOUT 2P.M. WILL INFORM DUNCAN AT [facility].
[2018-07-16] MEDS: PARoxetine 10 MG TAB PO SCH (11:39)
--- NOTE | 2018-07-16 11:44 | NUR ---
RECEIVED A CALL FROM DUNCAN FROM [facility]. SHE SAID THAT WILL CUSTOMER FACILITIES SUPERVISOR PATIENT, THOMAS, AT 5P.M. I CALLED THE NURSE, OLIVA AND INFORMED HER. I CALLED ALF [facility] AND SPOKE WITH ALESIA AND INFORMED HER THAT THE PATIENT WAS GOING TO [facility] IN [place]. I GAVE THE THE PHONE NUMBER AND THE ADDRESS.
--- NOTE | 2018-07-16 11:59 | NUR ---
SPOKE WITH KALINA AT [facility]. SHE ASKED ME TO FAX THE MED LIST, ORDER, AND MICRO FOR URINE AND BLOOD TO HER AT [phone]. I INFORMED HER OF ESBL IN URINE/BLOOD AND SHE SAID IT WAS OKAY.
[2018-07-16 12:00] VITALS: BP 111/56
[2018-07-16 16:00] VITALS: BP 110/55
--- NOTE | 2018-07-16 16:00 | NUR ---
GAVE REPORT TO SNEHAL Mclaughlin AT [facility]. ALL QUESTIONS ANSWERED AT THIS TIME. SNEHAL VERBALIZED UNDERSTANDING OF INSTRUCTIONS.
--- NOTE | 2018-07-16 16:37 | NUR ---
JAC (DAUGHTER) CALLED AND INFORMED THAT PT WILL BE TRANSFERRED TO [facility], ADDRESS AND PHONE NUMBER GIVEN TO JAC AT THIS TIME FOR FACILITY.
--- NOTE | 2018-07-16 17:11 | NUR ---
MORA REMOVED AT THIS TIME. PT TOLERATED WELL. PT IN STABLE CONDITION. WILL CONTINUE TO MONITOR.
--- NOTE | 2018-07-16 20:15 | NUR ---
GAVE DISCHARGE INSTRUCTIONS TO PT AND TRANSPORT TEAM. PT CONFUSED AT THIS TIME. TRANSPORT TEAM VERBALIZED UNDERSTANDING OF INSTRUCTIONS. IV DISCONNECTED FROM PUMP AND SALINE LOCKED. ID BAND REMOVED. PT PLACED ON GURNEY IN STABLE CONDITION.
== END 2018-07-16 20:10 | DRG 871 ==
LOC: MED 04:00 → MIC 08:15 → MTU 07-13 15:30
PROVIDERS: ADMIT Hospitalist; ATTEND Hospitalist
DX: A41.51 Sepsis due to Escherichia coli [E. coli] (principal); R65.21 Severe sepsis with septic shock; G93.41 Metabolic encephalopathy; I21.4 Non-ST elevation (NSTEMI) myocardial infarction; N12 Tubulo-interstitial nephritis, not specified as acute or chronic; N17.9 Acute kidney failure, unspecified; E86.0 Dehydration; I10 Essential (primary) hypertension; Z88.5 Allergy status to narcotic agent; F03.90 Unspecified dementia, unspecified severity, without behavioral disturbance, psychotic disturbance, mood disturbance, and anxiety; F32.9 Major depressive disorder, single episode, unspecified; F41.9 Anxiety disorder, unspecified; Z16.12 Extended spectrum beta lactamase (ESBL) resistance
CPT/HCPCS: 36415; 71045; 80048; 80053; 81001; 82948; 83605; 83690; 83735; 83880; 84484; 85025; 85610; 87040; 87081; 87086; 87186; 87804; 93005; 96365; 99291; C9113; J0696; J1650; J2060; J2543; J3490; J7030; J7060; Q0092

== ENCOUNTER 2018-08-30 18:14 | Emergency (ER) | payer OTHER ==
[~2018-08-30] VITALS: Ht 172.7 cm; Wt 76.2 kg
[~2018-08-30 18:14] MED LIST changes: +ZOS3.375PM IV
[2018-08-30 18:27] VITALS: BP 143/64
--- NOTE | 2018-08-30 18:51 | NUR ---
[facility]A FROM [facility] C/O RASH UPPER CHEST, ABDOMEN & BACK X 1 WEEK. MED HX: DEMENTIA,HTN,GERD. ALERT, OREITED TO HER NAME,AGE; NEUROLOGICALLY AT BASE LINE. PATIENT STATES PAIN OF 0/10 AT THIS TIME. PATIENT POSITIONED FOR COMFORT; HOB ELEVATED; BEDRAILS UP X2; BED DOWN. ER MD MADE AWARE OF PT STATUS.
--- NOTE | 2018-08-30 19:11 | NUR ---
Pt report given to STEVEN SMITH. Transfer of care at this time.
--- NOTE | 2018-08-30 19:20 | NUR ---
Bedside report recieved from LUIS Bazzi. Transfer of care at this time.
--- NOTE | 2018-08-30 19:50 | NUR ---
CONTACTED [facility] FOR TRANSPORT, STATED THEY ARE NOT RESPONSIBLE FOR HER TRANSPORT AND TO CALL FAMILY. ER MADE AWARE OF STATUS
--- NOTE | 2018-08-30 20:05 | NUR ---
CONTACTED FAMILY REGARDING TRANSPORTATION, JAC, DAUGHTER, FAMILY WILL CALL FACILITY, DUE TO HER BEING 3 HOURS AWAY. ER MD MADE AWARE OF STATUS.
--- NOTE | 2018-08-30 20:10 | NUR ---
CONTACTED JAC CORTEZ, LEFT A MESSAGE TO SEE IF SHE WOULD LIKE TO USE [facility], WAITING FOR RESPONSE.
--- NOTE | 2018-08-30 20:14 | NUR ---
JAC CORTEZ CONTACTED BACK, STATED THERE WAS NO RESPONSE FROM [facility], SHE ACCEPTED GOING WITH [facility] FOR HER MOM. ER MADE AWARE.
--- NOTE | 2018-08-30 20:15 | NUR ---
Pt awake in bed. VSS. Will continue to monitor.
--- NOTE | 2018-08-30 20:51 | NUR ---
ETA FOR TRANSPORT S 2300, PER [facility]. MALU FROST AWARE Addendum: 08/30/18 at 2050 by [email or web address] ETA FOR TRANSPORT IS @ 2300, PER [facility]. MALU FROST AWARE
[2018-08-30 20:55] VITALS: BP 137/71
--- NOTE | 2018-08-30 22:00 | NUR ---
Pt awake. Bedrails x2 up. HOB elevated for comfort. Will continue to monitor.
--- NOTE | 2018-08-30 23:05 | NUR ---
[facility] AT BEDSIDE
--- NOTE | 2018-08-30 23:13 | NUR ---
Patient discharged with v/s stable. Written and verbal after care instructions given and explained. Patient verbalized understanding. Wheel chair assisted back to alf. All questions addressed prior to discharge. Advised to follow up with PMD.
--- NOTE | 2018-08-30 23:13 | NUR ---
PT TAKEN BY [facility] TO [facility]
== END 2018-08-30 23:13 | disposition home or self-care (01) ==
LOC: MED 18:14
DX: L30.9 Dermatitis, unspecified (principal); B49 Unspecified mycosis; K21.9 Gastro-esophageal reflux disease without esophagitis; I10 Essential (primary) hypertension; F03.90 Unspecified dementia, unspecified severity, without behavioral disturbance, psychotic disturbance, mood disturbance, and anxiety; Z79.899 Other long term (current) drug therapy; Z88.5 Allergy status to narcotic agent
CPT/HCPCS: 99283

== ENCOUNTER 2020-08-18 03:29 | Emergency (ER) | payer OTHER ==
[~2020-08-18] VITALS: Ht 170.2 cm; Wt 97.5 kg
--- NOTE | 2020-08-18 03:30 | NUR ---
Patient arrived via BLS transport
--- NOTE | 2020-08-18 03:45 | NUR ---
Patient taken to CT
--- NOTE | 2020-08-18 03:55 | NUR ---
Patient returned from CT
[2020-08-18 04:09] VITALS: BP 144/66
--- NOTE | 2020-08-18 04:29 | NUR ---
Ice pack placed on patients Left temporal area.
--- NOTE | 2020-08-18 07:05 | NUR ---
Patient slept through the night. She took off ice pack placed on her head. No other issues observed at this time.
--- NOTE | 2020-08-18 07:42 | NUR ---
[facility] CONTACTED FOR TRANSPORT TO RETURN TO FACILITY
--- NOTE | 2020-08-18 07:44 | NUR ---
0742--[facility] REPLIED FOR 11 O CLOCK ETA FOR TRANSPORT
[2020-08-18 10:38] VITALS: BP 136/64
--- NOTE | 2020-08-18 10:42 | NUR ---
Patient discharged with v/s stable. Written and verbal after care instructions given and explained. Patient verbalized understanding. Ambulance Transport with to [facility]. All questions addressed prior to discharge. Advised to follow up with PMD.
== END 2020-08-18 10:42 | disposition designated cancer center or children's hospital (05) ==
LOC: MED 03:29
DX: S06.330A Contusion and laceration of cerebrum, unspecified, without loss of consciousness, initial encounter (principal); F03.90 Unspecified dementia, unspecified severity, without behavioral disturbance, psychotic disturbance, mood disturbance, and anxiety; E11.9 Type 2 diabetes mellitus without complications; K21.9 Gastro-esophageal reflux disease without esophagitis; Z88.5 Allergy status to narcotic agent; W06.XXXA Fall from bed, initial encounter; Y93.89 Activity, other specified; Y92.89 Other specified places as the place of occurrence of the external cause; Y99.8 Other external cause status
CPT/HCPCS: 70450; 99284

== ENCOUNTER 2022-09-01 04:05 | Inpatient (IN) | payer OTHER ==
[~2022-09-01] VITALS: Ht 170.2 cm; Wt 97.5 kg
[~2022-09-01 04:05] MED LIST changes: -HAL1 PO; +HALO1TAB99 PO
--- NOTE | 2022-09-01 04:12 | NUR ---
PT [facility] B[facility]. TAKEN TO BED 5
[2022-09-01 04:13] VITALS: BP 135/83
--- NOTE | 2022-09-01 04:19 | NUR ---
Patient BIB by MADELIN from [facility]. C/O nausea, vomiting and diarrhea x 1 day. Per reported, patient had nausea, vomiting and diarrhea, at the scence, patient vomiting x 1 episode, dark brown color. PMHx: Anxiety , depression
--- NOTE | 2022-09-01 04:19 | NUR ---
Dr. Romero examining patient.
[2022-09-01] MEDS ORDERED: PANTOPRAZOLE 40 MG INJ VIAL IVP ONE (04:25)
[2022-09-01] MEDS ORDERED: DIPH25TA53 PO (04:48)
[2022-09-01] MEDS ORDERED: QUET50TA PO (04:48)
[2022-09-01 04:59] LABS: BASOPHILS % (AUTO) 0.1 % (0.0-2.0); HEMATOCRIT 43.5 % (36-48); HEMOGLOBIN 14.1 g/dL (12.0-16.0); LYMPHOCYTES % (AUTO) 5.2 % (20.5-51.1); MEAN CORPUSCULAR HEMOGLOBIN 29 pg (27-31); MEAN CORPUSCULAR HGB CONC 32 g/dL (33-37); MEAN CORPUSCULAR VOLUME 88.3 fL (80-94); MONOCYTES # (AUTO) 0.6 K/uL (0.8-1.0); MONOCYTES % (AUTO) 3.5 % (1.7-9.3); NEUTROPHILS # (AUTO) 16.8 K/uL (1.8-7.7); NEUTROPHILS % (AUTO) 91.2 % (42.2-75.2); PLATELET COUNT (AUTO) 438 K/uL (140-450); RED BLOOD CELL COUNT(AUTO) 4.92 MIL/uL (4.20-5.40); RED CELL DISTRIBUTION WIDTH 14.2 % (11.6-13.7); WHITE BLOOD COUNT (AUTO) 18.4 K/uL (4.8-10.8)
[2022-09-01 05:31] LABS: ALBUMIN 3.2 g/dL (3.4-5.0); ANION GAP 17.6 (8-16); CARBON DIOXIDE 23.2 mmol/L (21-32); CHLORIDE 104 mmol/L (98-107); CREATININE 1.4 mg/dL (0.6-1.3); GLUCOSE 259 mg/dL (74-106); LIPASE 34 U/L (73-393); POTASSIUM 3.8 mmol/L (3.5-5.1); SODIUM SERUM 141 mmol/L (136-145); UREA NITROGEN, BLOOD 25 mg/dL (7-18)
--- NOTE | 2022-09-01 05:53 | NUR ---
pt is confused
[2022-09-01 06:05] LABS: ASPARTATE AMINOTRANSFERASE 14 U/L (15-37); TOTAL BILIRUBIN 0.4 mg/dL (0.0-1.0)
[2022-09-01] MEDS ORDERED: LORazepam 2 MG/ML VIAL IVP ONE (06:15)
--- NOTE | 2022-09-01 06:19 | NUR ---
ATIVAN DRAWN UP AND WASTED AT BEDSIDE, WITNESSED BY JYOTI WONG. ATIVAN WAS NEEDED FOR IMAGING, BUT ABLE TO DO IT WITHOUT MEDICATING PT.
--- NOTE | 2022-09-01 07:22 | NUR ---
REPORT RECEIVED FROM ELENO SMITH. ASSUMED CARE AT THIS TIME
[2022-09-01 07:25] LABS: APPEARANCE,URINE CLEAR (CLEAR); BILIRUBIN,URINE NEGATIVE (NEGATIVE); BLOOD, URINE TRACE-I (NEGATIVE); COLOR,URINE YELLOW (YELLOW); LEUKOCYTE ESTERASE ,URINE TRACE (NEGATIVE); NITRITE, URINE NEGATIVE (NEGATIVE); PH,URINE 6.5 (5.0-9.0); UGLUCOSE NEGATIVE (NEGATIVE)
[2022-09-01] MEDS ORDERED: QUET50TA15 PO (08:05)
[2022-09-01] MEDS ORDERED: PARO10TA8 PO (08:05)
[2022-09-01] MEDS ORDERED: TRAZ-466 PO (08:05)
[2022-09-01] MEDS ORDERED: cefTRIAXone 1,000 MG VIAL ONE (08:12)
[2022-09-01] MEDS ORDERED: ONDANSETRON 4 MG/2 ML VIAL ONE (08:25)
--- NOTE | 2022-09-01 08:29 | NUR ---
PT N/V X1. DARK/COFFEE GROUND EMESIS NOTED . ERMD MADE AWARE
[2022-09-01] MEDS ORDERED: ONDANSETRON 4 MG/2 ML VIAL IVP ONE (08:30)
[2022-09-01] MEDS ORDERED: ETOMIDATE 20 MG/10 ML VIAL IVP ONE (08:30)
[2022-09-01] MEDS ORDERED: ATROPINE 1 MG/10 ML SYR IVP ONE (08:30)
[2022-09-01] MEDS ORDERED: SUCCINYLCHOLINE CHLORIDE 200 MG/10 ML VIAL IVP ONE (08:30)
--- NOTE | 2022-09-01 08:30 | NUR ---
pt changed into clean gown and linen. warm blanket provided
--- NOTE | 2022-09-01 08:32 | NUR ---
PT HAD EPISODE OF COFFEE GROUND EMESIS. HOB RAISED AND PT GIVEN EMESIS BAG. DR ELKINS AWARE. PT MEDICATED WITH ZOFRAN. PT CLEANED AND NEW GOWN APPLIED. ALL NEEDS MET.
--- NOTE | 2022-09-01 08:34 | NUR ---
pt swabbed for covid(katie). walked and handed to lab
[2022-09-01] MEDS ORDERED: AMLO-3 PO (08:56)
[2022-09-01] MEDS ORDERED: POTASSIUM CHLORIDE 10 MEQ TABER PO PRN (09:10)
[2022-09-01] MEDS ORDERED: ONDANSETRON 4 MG/2 ML VIAL IM/IVP PRN (09:10)
[2022-09-01] MEDS ORDERED: ACETAMINOPHEN 325 MG TAB PO PRN (09:10)
[2022-09-01] MEDS ORDERED: DOCUSATE SODIUM 100 MG GELCAP PO PRN (09:10)
[2022-09-01] MEDS ORDERED: HYDROcodone/APAP 7.5/325 MG 1 TAB PO PRN (09:10)
[2022-09-01] MEDS ORDERED: ZOLPIDEM 5 MG TAB PO PRN (09:10)
[2022-09-01] MEDS ORDERED: guaiFENesin DM 200/20 MG-10 ML 10 ML UDC PO PRN (09:10)
[2022-09-01] MEDS: DEXT 5% /NACL 0.9% 1,000 ML IV SCH ×4 (09:28→23:28)
--- NOTE | 2022-09-01 09:29 | NUR ---
MD CARTY AT BEDSIDE FOR EVALUATION
[2022-09-01 09:46] LABS: PROTHROMBIN TIME 11.5 secs (10.8-13.4)
[2022-09-01 09:56] LABS: CHOL/HDL RATIO 4.2 (1-4.5); FREE T4 (FREE THYROXINE) 0.9 ng/dL (0.76-1.46); PHOSPHORUS 4.8 mg/dL (2.5-4.9); THYROID STIMULATING HORMONE 4.16 uIU/mL (0.34-3.74)
--- NOTE | 2022-09-01 10:05 | NUR ---
Patient will be admitted to care of MD CARTY. Admited to M/S. Will go to room 125B. Belongings list completed. Report to EUGENIO SMITH.
--- NOTE | 2022-09-01 10:20 | NUR ---
RECEIVED PT FROM ER, GOT THE REPORT FROM THE ER NURSE FOR CONTINUITY OF CARE. ORIENTED THE PT TO THE NEW ROOM, ASSESSMENT IS DONE, OBTAINED VS. PT IS APHASIC, NOT ABLE TO COMMUNICATE BUT FOLLOWS COMMAND. NO SKIN BREAKDOWN. IV INTACT ON RIGHT AC. WILL CONTINUE TO MONITOR AND ADMIT. [id number]
[2022-09-01 13:15] VITALS: BP 99/46
[2022-09-01 16:00] VITALS: BP 112/74
--- NOTE | 2022-09-01 19:30 | NUR ---
RECEIVED REPORT FROM DAY SHIFT NURSE EUGENIO FOR CONTINUITY OF CARE. PT AWAKE WITH EYES CLOSED IN BED. RESPIRATIONS EVEN AND UNLABORED IN RA. NO SIGNS OF PAIN AND DISCOMFORT. IV SITE ON RAC 20G INFUSING IVF. POC DISCUSSED. REPORT GIVEN TO LUIS GRAHAM. CALL LIGHT WITHIN REACH. SAFETY PRECAUTIONS IN PLACE.
[2022-09-01 20:00] VITALS: BP 96/72
[2022-09-01] MEDS: clonazePAM 0.5 MG TAB PO SCH (21:03)
--- NOTE | 2022-09-01 21:03 | NUR ---
ADMINISTERED DUE MEDS. PT TOLERATED WELL. NO COMPLAINTS OF NAUSEA AND VOMITING.
[2022-09-01] MEDS: QUEtiapine FUMARATE 25 MG TAB PO SCH (21:06)
[2022-09-01] MEDS: PANTOPRAZOLE 40 MG INJ VIAL IVP SCH (21:32)
[2022-09-02] VITALS (11 sets, daily range): BP systolic 72–146; BP diastolic 20–85
--- NOTE | 2022-09-02 05:46 | NUR ---
NO URINE OUTPUT ALL THROUGHOUT NIGHT. USED BLADDER SCANNER, FOUND 100CC URINE. NO BM. PT HAD NO SIGNS OF PAIN. NO DISTRESS NOTED. SAFETY PRECAUTIONS MAINTAINED.
[2022-09-02 06:08] LABS: ANION GAP 21.7 (8-16); CARBON DIOXIDE 14.2 mmol/L (21-32); CHLORIDE 109 mmol/L (98-107); CREATININE 2.9 mg/dL (0.6-1.3); GLUCOSE 188 mg/dL (74-106); POTASSIUM 4.9 mmol/L (3.5-5.1); SODIUM SERUM 140 mmol/L (136-145); UREA NITROGEN, BLOOD 38 mg/dL (7-18)
[2022-09-02] MEDS: DEXT 5% /NACL 0.9% 1,000 ML IV SCH ×2 (06:19→15:08)
[2022-09-02 06:20] LABS: HEMATOCRIT 39.8 % (36-48); LYMPHOCYTES # (AUTO) 1.1 K/uL (2.5-16.5); LYMPHOCYTES % (AUTO) 3.6 % (20.5-51.1); MEAN CORPUSCULAR HEMOGLOBIN 29 pg (27-31); MEAN CORPUSCULAR HGB CONC 33 g/dL (33-37); NEUTROPHILS # (AUTO) 29.4 K/uL (1.8-7.7); NEUTROPHILS % (AUTO) 93.4 % (42.2-75.2); PLATELET COUNT (AUTO) 306 K/uL (140-450); RED BLOOD CELL COUNT(AUTO) 4.52 MIL/uL (4.20-5.40); RED CELL DISTRIBUTION WIDTH 14.8 % (11.6-13.7)
--- NOTE | 2022-09-02 06:46 | NUR ---
RECEIVED CRITICAL LAB. WBC 31.9. DR GEORGE AWARE. NO NEW ORDERS GIVEN.
[2022-09-02 06:47] LABS: WHITE BLOOD COUNT (AUTO) 31.5 K/uL (4.8-10.8)
--- NOTE | 2022-09-02 07:07 | NUR ---
ASSUMED CONTINUITY OF CARE. INITIAL ASSESSMENT DONE. KEEP COMFORTABLE ON BED. FALL PRECAUTION APPLIED. CALL LIGHT WITHIN REACH.
--- NOTE | 2022-09-02 07:14 | NUR ---
GAVE BEDSIDE REPORT TO JYOTI CHARLES FOR CONTINUITY OF CARE. PT IS STABLE.
--- NOTE | 2022-09-02 08:00 | NUR ---
Patient's Plan of Care was discussed and reviewed with SPECIAL EFFECTS PERSON: MELVIN
[2022-09-02] MEDS ORDERED: PARoxetine 10 MG TAB PO SCH (09:00)
[2022-09-02] MEDS ORDERED: LOSARTAN 50 MG TAB PO SCH (09:00)
[2022-09-02] MEDS ORDERED: HALOPERIDOL 1 MG TAB PO SCH (09:00)
[2022-09-02] MEDS ORDERED: PANTOPRAZOLE 40 MG TABEC PO SCH (09:00)
[2022-09-02] MEDS: PANTOPRAZOLE 40 MG INJ VIAL IVP SCH ×2 (09:00→21:13)
[2022-09-02] MEDS ORDERED: amLODIPine 5 MG TAB PO SCH (09:00)
--- NOTE | 2022-09-02 09:03 | NUR ---
PATIENT HAS BEEN SCREENED AND CATEGORIZED MODERATE NUTRITION RISK. PATIENT WILL BE SEEN WITHIN 3-5 DAYS OF ADMISSION. 09/01/22-09/07/[address] BY RILEY CABR[address]
[2022-09-02 09:06] LABS: T4 (THYROXINE) 5.5 ug/dL (4.5-12.0)
[2022-09-02] MEDS: QUEtiapine FUMARATE 25 MG TAB PO SCH ×2 (09:12→21:00)
[2022-09-02] MEDS: clonazePAM 0.5 MG TAB PO SCH ×2 (09:13→21:00)
--- NOTE | 2022-09-02 13:22 | NUR ---
DC PLANNING ASSESSMENT COMPLETE PLEASE REFER TO ASSESSMENT FOR ADDITIONAL DETAILS LINDSAY REPORTS DC PLAN IS FOR PT TO RETURN TO MR, WHEN MEDICALLY STABLE. Addendum: 09/02/22 at 1322 by Paul AKHTAR Amended: Links added.
--- NOTE | 2022-09-02 15:12 | NUR ---
CALLED DR. GEORGE AND SPOKE TO DR. HORTON (RESIDENT MD), INFORMED PT. RESPIRATORY DISTRESS AT 1455, B6 182, BP 146/72, RESP 22, TEMP 97.7, 97% ON 5L VIA NC, HR 135. ALSO INFORMED THAT CXR STAT ORDERED AND PT. HAVING AT THIS TIME. ASKED FOR FURTHER ORDER. NO ORDER RECEIVED. INFORMED CHARGE NURSE ANGELINE MEDINA.
--- NOTE | 2022-09-02 15:44 | NUR ---
PAGED DR. GEORGE REGARDING RESPIRATORY THERAPIST RECOMMENDATION TO PUT PT. ON BIPAP AND TELEMETRY STATUS. DR. GEORGE PAGED AND GOT ORDER. INFORMED CHARGE NURSE ANGELINE MEDINA.
--- NOTE | 2022-09-02 15:55 | NUR ---
TRANSFERRED PT. TO ROOM 105-B DUE TO BIPAP APPLICATION. RT -KINSEY AND DEQUAN CAME AND APPLIED BIPAP ON PT..
--- NOTE | 2022-09-02 16:05 | NUR ---
CALLED LAB AND SPOKE TO YOVANI REGARDING DR. GEORGE ORDER OF STAT D-DIMER.
--- NOTE | 2022-09-02 16:07 | NUR ---
RADIO DIRECTOR CAME FOR D-DIMER BLOOD DRAW.
--- NOTE | 2022-09-02 16:45 | NUR ---
RT CRISTOBAL DID ABG ON PT..
--- NOTE | 2022-09-02 17:00 | NUR ---
RT DOMINGUEZ CALLED DR. GEORGE AND INFORMED OF PT. ABG RESULTS. NO ORDER RECEIVED FROM DR. GEORGE. INFORMED CHARGE NURSE ANGELINE MEDINA
--- NOTE | 2022-09-02 17:07 | NUR ---
DR. GEORGE PAGED BACK ASKED FOR MORNING BMP RESULTS. PICTURE OF BMP RESULTS, ABG RESULTS AND D-DIMER RESULTS FORWARDED TO DR. GEORGE. AGAIN NO ORDER RECEIVED. INFORMED CHARGE NURSE ANGELINE MEDINA.
--- NOTE | 2022-09-02 17:35 | NUR ---
DR. GEORGE CALLED AND ORDERED PT. TRANSFER TO ICU. INFORMED CHARGE NURSE ANGELINE MEDINA. CALLED KINSEY - AND ASKED ASSISTANCE FOR PT. TRANSFER TO ICU.
--- NOTE | 2022-09-02 17:45 | NUR ---
CALLED PT. DAUGHTER JAC CORTEZ AND INFORMED OF PT. TRANSFER TO ICU BED 5 DUE TO RESPIRATORY DISTRESS.
--- NOTE | 2022-09-02 17:55 | NUR ---
TRANSFER TO ICU BED 5 VIA [place] WITH ASSISTANCE FROM 3 RT'S. INFORMED CHARGE NURSE -ANGELINE MEDINA.
--- NOTE | 2022-09-02 18:05 | NUR ---
RECEIVED BEDSIDE REPORT FROM MELVIN SMITH, PT TRANSPORTED VIA BED FROM [facility] TO ICU 5. ST ON MONITOR, AWAKE, BP ON LOW SIDE. ON BIPAP, FIO2 40%, RATE 16. PERIPHERAL IV TO RT AC 20G, INFUSING D5 NS @ 140MLS/H. GENERALIZED WEAKNESS, BEDREST. INCONTINENT. SKIN INTACT. SAFETY PRECAUTION IN PLACE, WILL CONTINUE TO MONITOR.
--- NOTE | 2022-09-02 18:18 | NUR ---
PT WAS TRANSPORTED TO ICU BED 5. NO COMPLICATIONS. WILL CONTINUE TO MONITOR.
[2022-09-02] MEDS ORDERED: NACL 0.9% 1,000 ML IV SCH ×2 (18:20→22:00)
[2022-09-02] MEDS: SODIUM BICARBONATE 8.4% 50 MEQ in DEXTROSE 5% 1,000 ML IV SCH (18:21)
--- NOTE | 2022-09-02 18:30 | NUR ---
MESSAGE DR GEORGE. ORDERED LEVOPHED DUE TO LOW BP, INSERT MORA AND STRICT IS & OS.
[2022-09-02] MEDS ORDERED: NOREPINEPHRINE 4 MG in DEXTROSE 5% 250 ML IV PRN (18:35)
[2022-09-02] MEDS ORDERED: NOREPINEPHRINE 4 MG/4 ML VIAL IV ONE (18:37)
--- NOTE | 2022-09-02 21:36 | NUR ---
PT. ON BIPAP I-10, E-5, RATE 16, 02 40%. HR ON SINUS TACHYCARDIA GREATER THAN 120'S, SBP IN THE GREATER 70'S, ON LEVOPHED DRIP AND O2 SAT IN THE 80'S. PT. ON LABORED BREATHING. SENT MESSAGE TO DR. GEORGE AND HE ORDERED TO FOLLOW UP DR. ARTIS AND IF CONTINUED TO BE LABOR TO HAVE ER INTUBATE.
--- NOTE | 2022-09-02 21:42 | NUR ---
SENT MESSAGE TO DR. ARTIS AND DR. MARTINEZ IS THE ONE SUPERVISOR STEEL DIVISION.
--- NOTE | 2022-09-02 21:46 | NUR ---
PAGED DR. MARTINEZ AND HE RETURNED CALL. HE ORDERED INTUBATION. HE GAVE THE VENT SETTING RATE 22, TV 450, FIO2 100%, PEEP 5, NGT/OGT, PROPOFOL DRIP RASS -2, FENTANYL DRIP RASS -2, PLACED ON BILATERAL SOFT WRIST RESTRAINT.
[2022-09-02] MEDS ORDERED: EPINEPHrine 1 MG/ML AMP ONE (22:03)
--- NOTE | 2022-09-02 22:05 | NUR ---
I CALLED ER TO NOTIFY ER MD THAT PT. NEEDS TO BE INTUBATED. CALLED BID WRITER AND REPORTED PT. WILL BE INTUBATED.
--- NOTE | 2022-09-02 22:07 | NUR ---
ER AT THE BEDSIDE, ASSESSED PT. FOR INTUBATION. ORDERED TO PREPARE EPINEPHRINE 1MG/ML, 20 MG RECURONIUM IVP AND 100MG SUCCINYLCHOLINE IVP.
--- NOTE | 2022-09-02 22:12 | NUR ---
PT. INTUBATED BY DR. ADLRE, ER. ORDERED, INSERTED OGT BUT UNSUCESSFUL. PLACED NGT AND CXR ORDERED FOR PLACEMENT VERIFICATION OF ETT/NGT. RESULT CAME OUT NGT NOT IN PLACED. ALSO SAID NGT NOT IN PLACED. PULLED OUT NGT.
--- NOTE | 2022-09-02 22:44 | NUR ---
PT. SBP IN THE 50'S. SENT MESSAGE TO DR. MARTINEZ AND ORDERED TO START VASOPRESSIN DRIP.
[2022-09-02] MEDS ORDERED: VASOPRESSIN 20 UNITS in NACL 0.9% 250 ML IV SCH (23:00)
[2022-09-02] MEDS ORDERED: VASOPRESSIN 20 UNITS/ML VIAL ONE (23:08)
[2022-09-03] VITALS: BP 88/24
[2022-09-03] MEDS ORDERED: NOREPINEPHRINE 4 MG/4 ML VIAL IV ONE (00:18)
[2022-09-03] MEDS ORDERED: EPINEPHrine PFS 0.1 MG/ML SYR IVP SCH (00:25)
[2022-09-03 01:00] VITALS: BP 122/26
[2022-09-03] MEDS ORDERED: fentaNYL citrate 1 MG in NACL 0.9% 80 ML IV PRN (01:05)
[2022-09-03] MEDS ORDERED: PROPOFOL 1000 MG/100 ML PREMIX 100 ML IV PRN (01:05)
[2022-09-03 02:00] VITALS: BP 161/101
[2022-09-03 02:38] LABS: BASOPHILS % (AUTO) 0.3 % (0.0-2.0); EOSINOPHILS % (AUTO) 0.1 % (0.0-4.0); HEMOGLOBIN 8.6 g/dL (12.0-16.0); LYMPHOCYTES # (AUTO) 2.7 K/uL (2.5-16.5); LYMPHOCYTES % (AUTO) 22.8 % (20.5-51.1); MEAN CORPUSCULAR HEMOGLOBIN 29 pg (27-31); MEAN CORPUSCULAR HGB CONC 31 g/dL (33-37); MEAN CORPUSCULAR VOLUME 94.1 fL (80-94); MONOCYTES # (AUTO) 0.3 K/uL (0.8-1.0); MONOCYTES % (AUTO) 2.8 % (1.7-9.3); NEUTROPHILS # (AUTO) 8.7 K/uL (1.8-7.7); PLATELET COUNT (AUTO) 147 K/uL (140-450); RED BLOOD CELL COUNT(AUTO) 2.98 MIL/uL (4.20-5.40); RED CELL DISTRIBUTION WIDTH 15.6 % (11.6-13.7); WHITE BLOOD COUNT (AUTO) 11.7 K/uL (4.8-10.8)
[2022-09-03 02:58] LABS: ALBUMIN 1.3 g/dL (3.4-5.0); ASPARTATE AMINOTRANSFERASE 757 U/L (15-37); CARBON DIOXIDE 18.3 mmol/L (21-32); CHLORIDE 109 mmol/L (98-107); GLUCOSE 102 mg/dL (74-106); SODIUM SERUM 143 mmol/L (136-145); TOTAL BILIRUBIN 0.5 mg/dL (0.0-1.0); UREA NITROGEN, BLOOD 49 mg/dL (7-18)
[2022-09-03 03:03] LABS: CREATININE 4.1 mg/dL (0.6-1.3); POTASSIUM 6.3 mmol/L (3.5-5.1)
--- NOTE | 2022-09-03 07:00 | NUR ---
PT CODE BLUE TWO TIMES LAST NIGHT AT O159 AND 0233. PLEASE REVIEW CODE BLUE SHEETS IN HARD CHART FOR DETAILS. PT DID NOT SURVIVE LAST CODE. FAMILY WAS NOTIFIED. PLEASE SEE CODE SHEET FOR DETAILS OF TIME, AND MORE DETAILED INFORMATION.
[2022-09-03] MEDS: SODIUM BICARBONATE 8.4% 50 MEQ in DEXTROSE 5% 1,000 ML IV SCH (07:45)
--- NOTE | 2022-09-03 09:01 | NUR ---
PT. WITH LOW JUS SCALE AT HIGH RISK, CONTINUE TO FOLLOW PRESSURE INJURY PREVENTION INTERVENTIONS. -POSITIONING: TURN AND REPOSITION PATIENT Q 2H OR SOONER USE PILLOWS TO KEEP BONY PROMINENCES FROM DIRECT CONTACT WITH SURFACES USE REPOSITIONING WEDGES TO PROVIDE 30-DEGREE ANGLE FOR SIDE LYING POSITIONS OFFLOADING OR FOAM DRESSING TO ALL TUBING TO PREVENT MEDICAL DEVICES RELATED PRESSURE INJURY -RE-EVALUATING AND MANAGING INCONTINENCE MONITOR SKIN CONDITION DURING POSITION CHANGE DO NOT MASSAGE REDNESS, BONY PROMINENCES FREQUENT SHIRLEY-CARE AND PROVIDE BARRIER CREAMS PRN IF SOILING MOISTURE CONTROL BY OFFER BED HANSEN/URINAL /ABSORBENT PAD TO WICK AND HOLD MOISTURE KEEP SKIN DRY AND PROTECT FROM FRICTION -MANAGE FRICTION/SHEAR/MOBILITY KEEP HOB AT THE LOWEST LEVEL OF ELEVATION NO MORE THAN 30 DEGREE UNLESS OTHERWISE CONTRAINDICATED USE LIFT SHEET OR TRANSFER DEVICE TO MOVE PATIENT AND PREVENT LATERAL SHEER. PROTECT HEELS, ELBOWS BONY PROMINENCES WITH SKIN BERRIES OR FOAM DRESSING IF EXPOSED TO FRICTION OFFLOAD BILATERAL HEELS BY PLACING PILLOWS UNDER CALVES AT ALL TIMES, UNLESS OTHERWISE CONTRAINDICATED -PRESSURE REDISTRIBUTION SURFACE THERAPY SANJIV ISOFLEX MATTRESS -NUTRITION: PLEASE FOLLOW RD RECOMMENDATIONS AND OFFER NUTRITION SUPPLEMENTS IF ORDERED. PLEASE CONTACT WOUND CARE NURSE FOR ANY QUESTION AND CHANGE OF WOUND CONDITION
== END 2022-09-03 02:42 | DRG 871 ==
LOC: MED 04:05 → MMU 09:18 → MTU 20:40 → MIC 09-02 18:08
PROVIDERS: ADMIT Family Medicine; ATTEND Family Medicine
PROC: 5A1935Z Respiratory Ventilation, Less than 24 Consecutive Hours (ICD-10-PCS; principal; 2022-09-02)
PROC: 0BH17EZ Insertion of Endotracheal Airway into Trachea, Via Natural or Artificial Opening (ICD-10-PCS; 2022-09-02)
PROC: 5A09357 Assistance with Respiratory Ventilation, Less than 24 Consecutive Hours, Continuous Positive Airway Pressure (ICD-10-PCS; 2022-09-02)
DX: A41.9 Sepsis, unspecified organism (principal); G93.41 Metabolic encephalopathy; N17.0 Acute kidney failure with tubular necrosis; J96.01 Acute respiratory failure with hypoxia; N10 Acute pyelonephritis; E44.1 Mild protein-calorie malnutrition; E87.20 Acidosis, unspecified; I10 Essential (primary) hypertension; K52.9 Noninfective gastroenteritis and colitis, unspecified; Z68.33 Body mass index [BMI] 33.0-33.9, adult; Z20.822 Contact with and (suspected) exposure to COVID-19; I46.9 Cardiac arrest, cause unspecified; K29.70 Gastritis, unspecified, without bleeding; K21.9 Gastro-esophageal reflux disease without esophagitis; E78.5 Hyperlipidemia, unspecified; N14.3 Nephropathy induced by heavy metals; E03.8 Other specified hypothyroidism; F03.90 Unspecified dementia, unspecified severity, without behavioral disturbance, psychotic disturbance, mood disturbance, and anxiety; E86.0 Dehydration; Z88.8 Allergy status to other drugs, medicaments and biological substances
CPT/HCPCS: 36415; 36600; 71045; 80048; 80053; 81001; 82150; 82803; 83036; 83690; 83735; 83880; 84100; 84436; 84439; 84443; 84479; 84484; 85025; 85379; 85610; 85730; 86886; 86900; 86901; 87040; 87081; 87086; 92950; 94660; 96365; 96375; 99285; C9113; J0171; J0330; J0461; J0696; J2060; J2405; J3490; J7060; Q0092; Q9967